=== PATIENT | female | born 1985 ===

== ENCOUNTER 2016-04-02 20:10 | Inpatient (IN) | payer MEDICARE, MEDICAID ==
[~2016-04-02] VITALS: Ht 182.9 cm; Wt 167.6 kg
[2016-04-02] MEDS ORDERED: ZOLPIDEM TARTRATE 10 MG TABLET PO PRN (21:45)
[2016-04-02] MEDS ORDERED: HALOPERIDOL 5 MG TABLET PO PRN (21:45)
[2016-04-02 21:54] VITALS: BP 126/66
[2016-04-02] MEDS ORDERED: ONDANSETRON HCL 4 MG TABLET PO PRN (22:15)
[2016-04-02] MEDS ORDERED: NAPROXEN 500 MG TABLET PO PRN (22:15)
[2016-04-02] MEDS ORDERED: ACETAMINOPHEN 325 MG TABLET PO PRN (22:15)
[2016-04-02] MEDS ORDERED: ALBUTEROL SULFATE HFA 90 MCG/PUFF 8 GM INHALER IH PRN (22:15)
[2016-04-02 22:31] VITALS: BP 125/70
[2016-04-03 01:23] LABS: APPEARANCE,URINE TURBID (CLEAR); GLUCOSE, URINE (UA) NEGATIVE (NEGATIVE); KETONES,URINE NEGATIVE (NEGATIVE); LEUKOCYTE ESTERASE ,URINE NEGATIVE (NEGATIVE); OCCULT BLOOD,URINE NEGATIVE (NEGATIVE); PH,URINE 5.5 (5.0-8.0); PROTEIN,URINE NEGATIVE (NEGATIVE)
[2016-04-03 01:39] LABS: ADD UA MICROSCOPIC YES
[2016-04-03 01:40] LABS: RBC,URINE 0-2 /HPF (0-2); SQUAMOUS EPITHELIAL CELL,UR Few /LPF (None Seen); URIC ACID CRYSTALS,URINE Many /LPF (None Seen); WBC,URINE 0-2 /HPF (0-5)
[2016-04-03] MEDS: LORazepam 2 MG TABLET PO PRN ×3 (06:35→16:53)
[2016-04-03 06:42] LABS: BASOPHILS % (AUTO) 0.6 % (0.0-2.0); HEMATOCRIT 33.3 % (36-46); HEMOGLOBIN 10.8 g/dL (12.0-16.0); MEAN CORPUSCULAR HEMOGLOBIN 23.5 pg (26.0-34.0); MEAN CORPUSCULAR HGB CONC 32.6 G/dL (31.0-37.0); MEAN CORPUSCULAR VOLUME 72 fL (80-100); MONOCYTES # (AUTO) 0.4 K/uL (0.1-1.0); NEUTROPHILS # (AUTO) 5.2 K/uL (1.8-7.7); NEUTROPHILS % (AUTO) 66.4 % (40.0-70.0); PLATELET COUNT (AUTO) 230 K/uL (150-450); RED BLOOD CELL COUNT(AUTO) 4.61 MIL/uL (4.00-5.20); RED CELL DISTRIBUTION WIDTH 14.9 % (11.5-14.5); WHITE BLOOD COUNT (AUTO) 7.8 K/uL (4.5-11.0)
[2016-04-03 07:12] LABS: ALANINE AMINOTRANSFERASE 14 U/L (12-78); ALBUMIN 3.1 g/dL (3.4-5.0); ANION GAP 10 mmol/L (8-16); ASPARTATE AMINOTRANSFERASE 10 U/L (15-37); BILIRUBIN,TOTAL 0.3 mg/dL (0.1-1.0); CALCIUM, TOTAL 8.5 mg/dL (8.8-10.5); CARBON DIOXIDE 24 mmol/L (22-29); CHLORIDE 104 mmol/L (98-107); CREATININE 0.65 mg/dL (0.60-1.30); GLOMERULAR FILTR. RATE CALC > 60 mL/min (>60); POTASSIUM 3.9 mmol/L (3.5-5.1); SODIUM SERUM 138 mmol/L (136-145); THYROID STIMULATING HORMONE 1.78 uIU/mL (0.36-3.74); TOTAL PROTEIN, SERUM 6.5 g/dL (6.4-8.2); UREA NITROGEN, BLOOD 13 mg/dL (7-18)
[2016-04-03] MEDS ORDERED: ACETAMINOPHEN 325 MG TABLET PO PRN (08:15)
[2016-04-03 08:49] VITALS: BP 124/82
[2016-04-03] MEDS: MULTIVITAMINS, THERAPEUTIC TABLET PO SCH (09:00)
[2016-04-03 10:34] LABS: RBC MORPHOLOGY COMMENT ABNORMAL RBC MORPH
[2016-04-03 19:46] VITALS: BP 145/67
[2016-04-03] MEDS ORDERED: SERTRALINE HCL 50 MG TABLET PO SCH (21:00)
[2016-04-03] MEDS ORDERED: METOPROLOL TARTRATE 25 MG TABLET PO PRN (21:15)
[2016-04-03 21:23] VITALS: BP 138/69
[2016-04-03] MEDS: METOPROLOL TARTRATE 25 MG TABLET PO SCH (21:32)
[2016-04-04 00:02] VITALS: BP 120/50
[2016-04-04 07:10] LABS: CHOL/HDL RATIO 3.4 (3.9-5.7)
[2016-04-04 08:00] VITALS: BP 123/58
[2016-04-04] MEDS: MULTIVITAMINS, THERAPEUTIC TABLET PO SCH (08:21)
[2016-04-04] MEDS: METOPROLOL TARTRATE 25 MG TABLET PO SCH (08:21)
[2016-04-04] MEDS: LORazepam 2 MG TABLET PO PRN ×3 (08:46→12:45)
[2016-04-04] MEDS ORDERED: NICOTINE 14 MG/24 HOUR PATCH TD SCH (09:00)
[2016-04-04] MEDS ORDERED: METOPROLOL TARTRATE 25 MG TABLET PO SCH (09:00)
[2016-04-04] MEDS ORDERED: TraMADol HCL 50 MG TABLET PO PRN (11:15)
[2016-04-04] MEDS ORDERED: FERROUS SULFATE 325 MG EC TABLET PO SCH (12:00)
[2016-04-04] MEDS ORDERED: SERT50TA12 PO (12:33)
[2016-04-04] MEDS ORDERED: FERR-89 PO (12:34)
[2016-04-04] MEDS ORDERED: METO25 PO (12:35)
[2016-04-04] MEDS ORDERED: MULT-1192 PO (12:38)
== END 2016-04-04 13:45 | disposition home or self-care (01) | DRG 885 ==
LOC: 3EX 21:15
PROVIDERS: ADMIT Psychiatry & Neurology Psychiatry; ATTEND Psychiatry & Neurology Psychiatry
DX: F33.2 Major depressive disorder, recurrent severe without psychotic features (principal); F41.9 Anxiety disorder, unspecified; F17.200 Nicotine dependence, unspecified, uncomplicated; E28.2 Polycystic ovarian syndrome; R45.850 Homicidal ideations; F25.9 Schizoaffective disorder, unspecified; E88.09 Other disorders of plasma-protein metabolism, not elsewhere classified; E83.51 Hypocalcemia; D64.9 Anemia, unspecified; Z81.8 Family history of other mental and behavioral disorders; Z88.6 Allergy status to analgesic agent; Z91.5 Personal history of self-harm; Z88.8 Allergy status to other drugs, medicaments and biological substances; Z88.0 Allergy status to penicillin
CPT/HCPCS: 82728; 83036; 83540; 83550; 84443; J3535